=== PATIENT | female | born 1945 | race Caucasian/White ===

== ENCOUNTER 2021-02-20 05:56 | Day surgery (SDC) | payer MEDICARE ==
[2021-02-18 17:12] LABS: BASOPHILS % (AUTO) 0.7 % (0.0-5.0); LYMPHOCYTES % (AUTO) 26.2 % (21.0-51.0); MEAN CORPUSCULAR HEMOGLOBIN 27.3 pg (27.0-33.0); MEAN CORPUSCULAR HGB CONC 31.3 g/dL (32.0-36.0); MEAN CORPUSCULAR VOLUME 87.2 fL (79-99); MONOCYTES % (AUTO) 8.5 % (3.0-13.0); NEUTROPHILS % (AUTO) 63.3 % (40.0-77.0); PLATELET COUNT (AUTO) 235 K/uL (130-400); RED BLOOD CELL COUNT(AUTO) 4.47 MIL/uL (4.00-5.50); RED CELL DISTRIBUTION WIDTH 14.8 % (11.0-15.5); WHITE BLOOD COUNT (AUTO) 7.1 K/uL (4.8-10.8)
[2021-02-18 17:21] LABS: APPEARANCE,URINE Clear (CLEAR); BILIRUBIN,URINE Negative (NEGATIVE); COLOR,URINE Yellow (YELLOW); GLUCOSE, URINE (UA) Negative (NEGATIVE); KETONES,URINE Negative (NEGATIVE); LEUKOCYTE ESTERASE ,URINE Small (NEGATIVE); NITRATE,URINE Negative (NEGATIVE); OCCULT BLOOD,URINE Negative (NEGATIVE); PROTEIN,URINE Negative (NEGATIVE)
[2021-02-18 17:22] LABS: CREATININE 0.8 mg/dL (0.5-1.5); POTASSIUM 4.1 mmol/L (3.5-5.1)
[2021-02-18 17:26] LABS: INR 0.94 (0.85-1.15); PROTHROMBIN TIME 10.3 SEC (9.6-11.6)
[2021-02-18 17:27] LABS: PARTIAL THROMBOPLASTIN TIME 24.6 SEC (26.3-35.5)
[2021-02-18 17:37] LABS: RBC,URINE None Seen /HPF (0-1); WBC,URINE 0-1 /HPF (0-1)
[2021-02-18 17:38] LABS: BACTERIA,URINE Few /HPF (None Seen); SQUAMOUS EPITHELIAL CELL,UR 0-2 /HPF (0-2)
[2021-02-19 10:21] VITALS: BP 142/71
[~2021-02-20] VITALS: Ht 171.4 cm; Wt 126.2 kg
[2021-02-20] VITALS (11 sets, daily range): BP systolic 118–143; BP diastolic 42–73
[~2021-02-20 05:56] MED LIST: CALC-1106 PO; CIME200T10 PO; CYAN-35 PO; DULO30CA52 PO; DULO60CA64 PO; LOSA50TA64 PO; SODIUM CHLORIDE 0.9% 500ML 500 ML IV SCH; VIT1CAPS47 PO; VITAMIN D3 PO
[2021-02-20] MEDS ORDERED: SODIUM CHLORIDE 0.9% 1000ML 1,000 ML IV ONE (06:20)
[2021-02-20] MEDS ORDERED: HEPARIN SODIUM 1000UNIT/ML 10ML VIAL ONE (07:15)
[2021-02-20] MEDS ORDERED: SODIUM BICARB 50MEQ 50ML VIAL 50 ML ONE (07:15)
[2021-02-20] MEDS ORDERED: IOHEXOL 350 MG/ML 100ML INFUS..BTL IV ONE (07:16)
[2021-02-20] MEDS ORDERED: FENTANYL CITRATE PF 50 MCG/1 ML 2ML VIAL ONE (07:16)
[2021-02-20] MEDS ORDERED: NITROGLYCERIN 2 MG/VIAL VIAL IV ONE (07:16)
[2021-02-20] MEDS ORDERED: MIDAZOLAM HCL 1 MG/ML 2ML VIAL ONE (07:16)
[2021-02-20] MEDS ORDERED: LIDOCAINE HCL 2% 20ML ONE (07:16)
[2021-02-20] MEDS ORDERED: SODIUM CHLORIDE 0.9% 1000ML 1,000 ML IV SCH (08:30)
== END 2021-02-20 14:45 | disposition home or self-care (01) ==
LOC: DAH 05:56
PROVIDERS: ATTEND Internal Medicine Cardiovascular Disease
DX: I27.20 Pulmonary hypertension, unspecified (principal); Q21.1 Atrial septal defect; Q24.5 Malformation of coronary vessels; I10 Essential (primary) hypertension; E66.9 Obesity, unspecified; Z95.1 Presence of aortocoronary bypass graft; Z90.49 Acquired absence of other specified parts of digestive tract; Z98.84 Bariatric surgery status; Z98.890 Other specified postprocedural states; Z68.41 Body mass index [BMI] 40.0-44.9, adult; Z79.01 Long term (current) use of anticoagulants; Z79.899 Other long term (current) drug therapy
CPT/HCPCS: 36415; 71045; 80048; 81001; 85025; 85610; 85730; 93005; 93460; A4215; A4216; A4221; A4222; A4223 ×3; A4606; A4663; C1760; C1894 ×3; J1644; J2250; J3010; J3490 ×3; J7030; Q9967; 99156; 99157

== ENCOUNTER 2025-07-02 11:39 | Emergency (ER) | payer MEDICARE ==
[~2025-07-02] VITALS: Ht 170.2 cm; Wt 132.4 kg
[~2025-07-02 11:39] MED LIST changes: -SODIUM CHLORIDE 0.9% 500ML 500 ML IV SCH
--- NOTE | 2025-07-02 11:51 | ERN ---
ED Note History of Present Illness Stated Complaint: INTERMITTENT, ANXIETY, SHAKY, CHILLS Chief Complaint: Anxiety/Panic Attack Time Seen by MD: 11:43 Dictation: PATIENT IS A 79-YEAR-OLD FEMALE COMING IN TODAY WITH COMPLAINTS OF INTERMITTENT ANXIETY SHAKY AND CHILLS FOR SEVERAL YEARS. SHE STATES SHE IS ON MULTIPLE MEDICATIONS FOR DEPRESSION AND ANXIETY HOWEVER, DOES NOT OFFER ANY SPECIFIC COMPLAINTS. SHE IS AFEBRILE IN TRIAGE, NO CHEST PAIN NO BACK PAIN NO NAUSEA VOMITING NO CHANGE IN URINATION. SHE STATES HER PRIMARY CARE DOCTOR IS IN [place], DR. MARKS HOWEVER HAS NEVER TOLD HER ABOUT THIS BEFORE. HER FINAL THOUGHTS WERE I JUST DO NOT FEEL GOOD. SHE DENIES SUICIDAL OR HOMICIDAL IDEATION Allergies: Coded Allergies: ibuprofen (Unverified Allergy, Unknown, 02/19/21) morphine (Unverified Allergy, Unknown, 02/19/21) Home Meds Reported Medications Vit C/E/Zn/Coppr/Lutein/Zeaxan (Preservision Areds 2 Softgel) 1 Each Capsule, 1 EACH PO BID, CAP 02/19/21 Cyanocobalamin (Vitamin B-12) (Vitamin B-12) 1,000 Mcg Capsule, 1000 MCG PO DAILY, CAP 02/19/21 Losartan Potassium (Losartan Potassium) 50 Mg Tablet, 50 MG PO DAILY, TAB 02/19/21 Cimetidine (Cimetidine) 200 Mg Tablet, 200 MG PO BID, TAB 02/19/21 Duloxetine HCl (Duloxetine HCl) 60 Mg Capsule.dr, 60 MG PO HS, CAP 02/19/21 Duloxetine HCl (Duloxetine HCl) 30 Mg Capsule.dr, 30 MG PO DAILY, CAP 02/19/21 Calcium Carbonate/Vitamin D3 (Calcium 600 + Vit D3 800 Tab) 1 Each Tablet, 1 EACH PO BID, TAB 02/19/21 [Vitamin D3] No Conflict Check, 5000 UNITS PO BID 02/19/21 Past Medical History History: Not Applicable RN Note Reviewed/Agreed w/PFSH: Yes Review of System Dictation CONSTITUTIONAL: NEGATIVE EXCEPT FOR HPI ANXIETY/SHAKY/CHILLS HEAD/FACE: NEGATIVE EXCEPT FOR HPI EENT: NEGATIVE EXCEPT FOR HPI RESPIRATORY: NEGATIVE EXCEPT FOR HPI GASTROINTESTINAL/ABDOMINAL: NEGATIVE EXCEPT FOR HPI GENITOURINARY: NEGATIVE EXCEPT FOR HPI MUSCULOSKELETAL: NEGATIVE EXCEPT FOR HPI INTEGUMENTARY: NEGATIVE EXCEPT FOR HPI NEUROLOGICAL/PSYCH: NEGATIVE EXCEPT FOR HPI HEMATOLOGIC/LYMPHATIC: NEGATIVE EXCEPT FOR HPI ALL SYSTEMS NEGATIVE, EXCEPT NOTED ABOVE. 13 POINT REVIEW OF SYSTEMS ASSESSED AND ALL NEGATIVE EXCEPT FOR ABOVE. Initial Vital Sign VS Vital Signs Date Time Temp Pulse Resp B/P (MAP) Pulse Ox O2 Delivery O2 Flow Rate FiO2 07/02/25 11:42 97.9 56 16 161/56 98 Room Air 0 07/02/25 13:58 21 Physical Exam Dictation VITAL SIGNS REVIEWED GENERAL APPEARANCE: ALERT, ORIENTED X 3, NO ACUTE DISTRESS, WELL DEVELOPED, NOURISHED. OBESE. NO SPECIFIC COMPLAINTS OTHER THAN SHAKY CHILLS AND ANXIETY FOR YEARS HEAD AND FACE: NON-TRAUMATIC. EYES: PERRL, PINK CONJUNCTIVAS, EYELID NO TRAUMA, ANTERIOR CHAMBER WITH ARCUS SENILIS. EARS: PINNAS INTACT AND NO SIGNS OF TRAUMA OR ERYTHEMA EAR CANALS CLEAR AND NO DISCHARGE TM NO ERYTHEMA NOSE: NO DISCHARGE, NO BLEEDING. OROPHARYNX: MOUTH NORMAL, TONGUE PINK, PHARYNX CLEAR,NO ERYTHEMA, TONSILS NO EXUDATES, NO ABSCESSES NOTED, MUCOUS MEMB MELLO MOIST NECK: SUPPLE, NON-TENDER, NO THYROMEGALY, NO MASSES, NO JVD, NO BRUITS BREAST:DEFERRED CHEST:NO TENDERNESS, NO CREPITUS, NO PARADOXICAL MOVEMENT, NO RETRACTIONS LUNGS:CLEAR, WELL-VENTILATED, SYMMETRIC, NO RALES, NO WHEEZING, NO RHONCHI, NO S TRIDOR, GOOD BREATH SOUNDS BILATERALLY HEART: REGULAR RATE, REGULAR RHYTHM, NO MURMUR, NO GALLOPS VASCULAR: NO PERIPHERAL EDEMA, ABDOMEN: SOFT, POSITIVE BOWEL SOUNDS, NONDISTENDED, NO GUARDING, NONTENDER, NO REBOUND, NO MASSES NO HEPATOMEGALY, NO SPLENOMEGALY, NO MURRAY'S SIGN, NO HERNIAS. RECTAL: DEFERRED GENITAL: DEFERRED NEUROLOGICAL: NORMAL SPEECH, MOTOR FUNCTION INTACT, SENSORY FUNCTION INTACT MUSCULOSKELETAL: NECK NONTENDER, FULL RANGE OF MOTION, BACK NONTENDER, FULL RANGE OF MOTION, EXTREMITIES: NONTENDER, FULL RANGE OF MOTION SKIN: COLOR PINK, DRY, NO TURGOR, NO RASH, NO LACERATIONS, NO ABRASIONS, NO CONTUSIONS. LYMPHATIC: DEFERRED Results (Laboratory/Radiology) Laboratory/Radiology Laboratory Tests Test 07/02/25 13:27 07/02/25 13:55 07/02/25 15:33 White Blood Count 8.8 K/uL (4.8-10.8) Red Blood Count 4.73 MIL/uL (4.00-5.50) Hemoglobin 13.2 g/dL (12.0-16.0) Hematocrit 40.6 % (36-48) Mean Corpuscular Volume 85.8 fL (79-99) Mean Corpuscular Hemoglobin 27.9 pg (27.0-33.0) Mean Corpuscular Hemoglobin Concent 32.5 g/dL (32.0-36.0) Red Cell Distribution Width 15.1 % (11.0-15.5) Platelet Count 223 K/uL (130-400) Mean Platelet Volume 10.9 fL (7.5-10.5) H Immature Granulocyte % (Auto) 0.5 % (0-1) Neutrophils (%) (Auto) 77.1 % (40.0-77.0) H Lymphocytes (%) (Auto) 16.3 % (21.0-51.0) L Monocytes (%) (Auto) 5.3 % (3.0-13.0) Eosinophils (%) (Auto) 0.2 % (0.0-8.0) Basophils (%) (Auto) 0.6 % (0.0-5.0) Neutrophils # (Auto) 6.8 K/uL (1.8-7.7) Lymphocytes # (Auto) 1.4 K/uL (1.0-4.8) Monocytes # (Auto) 0.5 K/uL (0.1-1.0) Eosinophils # (Auto) 0.02 K/uL (0.00-0.70) Basophils # (Auto) 0.05 K/uL (0.00-0.20) Absolute Immature Granulocyte (auto 0.04 K/uL (0-1) Nucleated Red Blood Cells 0.0 % (0.0-0.19) Sodium Level 142 mmol/L (136-145) Potassium Level 4.0 mmol/L (3.5-5.1) Chloride Level 106 mmol/L (101-111) Carbon Dioxide Level 33 mmol/L (21-32) H Blood Urea Nitrogen 9 mg/dL (7-18) Creatinine 0.8 mg/dL (0.5-1.0) Glomerular Filtration Rate Calc 75 mL/min (>90) Random Glucose 97 mg/dL (70-105) Total Calcium 8.8 mg/dL (8.5-10.1) Magnesium Level 1.70 mg/dL (1.80-2.40) L Troponin I High Sensitivity 10 ng/L (4-50) 9 ng/L (4-50) Urine Color YELLOW (YELLOW) Urine Appearance CLEAR (CLEAR) Urine pH 7.5 (5.0-8.0) Urine Specific [place] 1.015 (1.001-1.031) Urine Protein TRACE mg/dL (NEGATIVE) H Urine Glucose (UA) NEGATIVE mg/dL (NEGATIVE) Urine Ketones NEGATIVE mg/dL (NEGATIVE) Urine Occult Blood NEGATIVE (NEGATIVE) Urine Nitrate NEGATIVE (NEGATIVE) Urine Bilirubin NEGATIVE mg/dL (NEGATIVE) Urine Urobilinogen 4.0 mg/dL (0.2-1.0) H Urine Leukocyte Esterase TRACE [place]/uL (NEGATIVE) H Urine RBC 0-1 /HPF (0-1) Urine WBC 0-1 /HPF (0-1) Urine Squamous Epithelial Cells Rare /HPF (0-2) Urine Bacteria None Seen /HPF (None Seen) PROCEDURE: CXR1VW - CHEST 1VW EXAM: CR Chest, 1 View. CLINICAL HISTORY: SOB/COUGH COMPARISON: None provided. FINDINGS: LUNGS: The lungs show no infiltrate or other acute finding. PLEURAL SPACES: No evidence of pleural effusion or pneumothorax. MEDIASTINUM: The cardiomediastinal silhouette is within normal limits. BONES: No acute osseous abnormality. IMPRESSION: No acute cardiopulmonary pathology is evident. /[place] Labs Reviewed?: Yes EKG Comment: EKG SINUS BRADYCARDIA/HEART RATE 57/AXIS NORMAL/ATRIAL ENLARGEMENT 1519/REPEAT EKG IS SINUS RHYTHM/HEART RATE /AXIS NORMAL/QT [id number] MILLISECOND 8 HIGH SENSITIVITY TROPONIN IS NINE HEART SCORE IS TWO ED Course ED Course Orders Procedure Category Date Status Time Cbc With Differential LAB 07/02/25 Complete 11:47 Chest 1vw RAD 07/02/25 Resulted 11:47 12 Lead Ekg Tracing- EKG 07/02/25 Complete Technical 11:47 Magnesium LAB 07/02/25 Complete 11:47 Troponin I High LAB 07/02/25 Complete Sensitivity 11:47 Urinalysis Profile LAB 07/02/25 Complete 11:47 Basic Metabolic Panel LAB 07/02/25 Complete 11:47 Magnesium 2gm Premix PHA 07/02/25 In Process 50ml (Magnesium 2gm 14:00 0.9%Nacl 1000ml (Ns PHA 07/02/25 Complete 1000ml) 14:30 12 Lead Ekg Tracing- EKG 07/02/25 Logged Technical 15:17 12 Lead Ekg Tracing- EKG 07/02/25 Logged Technical 15:25 Troponin I High LAB 07/02/25 Complete Sensitivity 15:25 Acetaminophen 500mg PHA 07/02/25 Complete Tab (Tylenol 500mg T 15:30 Current Medications Medications (Trade) Dose Ordered Sig/Nusrat Route PRN Reason Start Time Stop Time Status Last Admin Dose Admin Acetaminophen (TYLenol 500MG TAB) 1,000 mg ONCE ONCE PO 07/02/25 15:30 07/02/25 15:31 DC 07/02/25 15:54 Magnesium Sulfate 50 ml @ 0 mls/hr PROTOCOL IV 07/02/25 14:00 08/01/25 13:59 07/02/25 14:31 Sodium Chloride 1,000 ml @ 0 mls/hr ONCE ONCE IV 07/02/25 14:30 07/02/25 14:31 DC 07/02/25 14:30 Vital Signs Date Time Temp Pulse Resp B/P (MAP) Pulse Ox O2 Delivery O2 Flow Rate FiO2 07/02/25 13:58 97.9 56 16 161/56 98 Room Air* 0 21 07/02/25 11:42 97.9 56 16 161/56 98 Room Air 0 1500/PATIENT REMAINS HEMODYNAMICALLY STABLE WAS GIVEN1 L FLUIDS FOR REHYDRATION AND MAGNESIUM. REVIEWED EKG LABS AND URINALYSIS. SHE WAS REFERRED TO HER PRIMARY CARE DOCTOR FOR MANAGEMENT 1525/PATIENT STATES WHEN MAGNESIUM WAS COMPLAINING THAT SHE FELT AND SHE COULD TASTE THE MAGNESIUM IN HER THROAT. DENIES CHEST PAIN BACK PAIN NO SOB. WE WILL FOLLOW TO REPEAT EKG AND TROPONIN. 1530/PATIENT STATES THAT IS SENSATION OF HER TASTE IN HER THROAT LASTED FOR ABOUT A MINUTE IN HIS NOW COMPLETELY RESOLVED. 1555/PATIENT STATES SYMPTOMS AFTER THE MAGNESIUM OR COMPLETELY RESOLVED. SHE IS AWARE THAT REPEAT TROPONIN EKG IS NORMAL AND WE WILL BE DISCHARGED HOME. HEART Score Response (Comments) Value EKG: Normal 0 Age: > 65yrs (+2) 2 Risk Factors: 1-2 risk factors (+1) 1 Initial Troponin: Normal limit (0) 0 Total 3 Medical Decision Making MDM MDM: DIFFERENTIAL DIAGNOSIS: ACS/AMI/ELECTROLYTE IMBALANCE/DEHYDRATION/URINARY TRACT INFECTION/ANXIETY/DEPRESSION RATIONALE: TESTS CONSIDERED AND ORDERED SECONDARY TO SHARED DECISION MAKING INCLUDE: EKG/LABS PREVIOUS OUTSIDE RECORDS REVIEWED: OLD ER VISITS. RISK OF COMPLICATION AND/OR MORBIDITY OR MORTALITY OF PATIENT MANAGEMENT: NONE MEDICATIONS-PER MEDICATION RECONCILIATION NEED FOR HOSPITALIZATION: PATIENT DOES NOT MEET CRITERIA FOR HOSPITALIZATION. NONE NEED FOR EMERGENCY MAJOR/MINOR SURGERY: NO THERE ARE NO SOCIAL CONCERNS WITH THIS PATIENT. PRESCRIPTION DRUG MANAGEMENT PRESCRIPTIONS WILL INCLUDE SYMPTOMATIC CARE PATIENT'S PRIOR EXTERNAL MEDICAL RECORDS FROM OTHER ER VISITS WERE REVIEWED BY ME INDICATED. PRIOR TESTING AND RESULTS FROM PREVIOUS VISITS WERE REVIEWED. PRIOR TESTS WERE TAKEN INTO ACCOUNT WITH MEDICAL DECISION MAKING AND RESOURCE UTILIZATION, INDEPENDENT HISTORIAN/HISTORIANS WERE USED TO OBTAIN COMPLETE MEDICAL HISTORY. I INDEPENDENTLY INTERPRETED THE TEST THAT WERE PERFORMED, RESULTS WERE REVIEWED BY ME AND CONSIDERED FINDINGS ON RADIOLOGY IF ORDERED. MEDICAL MANAGEMENT AND EXAMINATION INTERPRETATION DISCUSSIONS WERE HAD BY ME WITH OTHER QUALIFIED HEALTHCARE PROFESSIONALS INDICATED FOR THE PATIENT'S CARE. DX & DISP Disposition: Discharge Departure Impression: Primary Impression: Hypomagnesemia Additional Impressions: Dehydration, Fatigue, Medication side effects Condition: Stable Additional Instructions: FOLLOW-UP WITH PRIMARY CARE PROVIDER IN 1 TO 2 DAYS. TAKE MEDICATIONS DIRECTED HERE IN THE EMERGENCY ROOM. OKAY TO CONTINUE HOME MEDICATIONS UNLESS OTHERWISE DISCUSSED DURING YOUR VISIT IN THE EMERGENCY ROOM TODAY. RETURN TO YOUR NEAREST EMERGENCY ROOM IF SYMPTOMS WORSEN OR IF THERE IS NO IMPROVEMENT. CALL 911 IF YOU NEED IMMEDIATE ASSISTANCE. TAKE TYLENOL OR MOTRIN O [id number] NEEDED AND IF NO CONTRAINDICATIONS ARE PRESENT. INCREASE ORAL HYDRATION. A WOUND CULTURE OR URINE CULTURE WAS ORDERED HERE IN THE EMERGENCY ROOM DEPARTMENT PLEASE FOLLOW-UP WITH PRIMARY CARE PROVIDER AND ADVISE THEM TO GET REPEAT PORTS FROM OUR FACILITY. IF YOU HAD ANY GRZEGORZ WRAP/SPLINTS THAT WERE APPLIED HERE, PLEASE DO NOT REMOVE THEM UNTIL YOU SEE YOUR PRIMARY CARE OR SPECIALTY. FOLLOW UP WITH YOUR PRIMARY CARE DOCTOR IN THE NEXT 1-2 DAYS MANAGEMENT. Referrals: LORAINE MARKS MD (PCP) Time of Disposition: 15:04 I have reviewed the case, and I agree with, Diagnosis and Plan RAYO AGUILAR NP Jul 02, 2025 11:51
--- NOTE | 2025-07-02 12:56 | HMCIMG ---
EXAM: CR Chest, 1 View. CLINICAL HISTORY: SOB/COUGH COMPARISON: None provided. FINDINGS: LUNGS: The lungs show no infiltrate or other acute finding. PLEURAL SPACES: No evidence of pleural effusion or pneumothorax. MEDIASTINUM: The cardiomediastinal silhouette is within normal limits. BONES: No acute osseous abnormality. IMPRESSION: No acute cardiopulmonary pathology is evident. /[place]
[2025-07-02 13:44] LABS: IMMATURE GRANULOCYTE ABSOLUTE 0.04 K/uL (0-1); NUCLEATED RED BLOOD CELLS 0.0 % (0.0-0.19); PLATELET COUNT (AUTO) 223 K/uL (130-400); RED BLOOD CELL COUNT(AUTO) 4.73 MIL/uL (4.00-5.50); RED CELL DISTRIBUTION WIDTH 15.1 % (11.0-15.5); WHITE BLOOD COUNT (AUTO) 8.8 K/uL (4.8-10.8)
[2025-07-02 13:50] LABS: CREATININE 0.8 mg/dL (0.5-1.0); GLOMERULAR FILTR. RATE CALC 75.0 mL/min (>90); GLUCOSE,RANDOM 97.0 mg/dL (70-105); SODIUM SERUM 142.0 mmol/L (136-145); UREA NITROGEN, BLOOD 9.0 mg/dL (7-18)
--- NOTE | 2025-07-02 13:50 | EKG ---
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
[2025-07-02 13:58] VITALS: BP 161/56; PULSE 56; RESP 16; TEMP 97.8; O2SAT 98
[2025-07-02 14:06] LABS: APPEARANCE,URINE CLEAR (CLEAR); GLUCOSE, URINE (UA) NEGATIVE (NEGATIVE); LEUKOCYTE ESTERASE ,URINE TRACE Leu/uL (NEGATIVE); NITRATE,URINE NEGATIVE (NEGATIVE); OCCULT BLOOD,URINE NEGATIVE (NEGATIVE)
[2025-07-02 14:08] LABS: ADD UA MICROSCOPIC YES
[2025-07-02 14:15] LABS: SQUAMOUS EPITHELIAL CELL,UR Rare /HPF (0-2)
[2025-07-02] MEDS: 0.9%NACL 1000ML 1,000 ML IV ONE (14:30)
[2025-07-02] MEDS: MAGNESIUM 2GM PREMIX 50ML 50 ML IV SCH (14:31)
--- NOTE | 2025-07-02 18:26 | EKG ---
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1945 Requested By: RAYO AGUILAR Order Number: [id number] Reading MD: Danie Swain Measurements Intervals [place] Rate: 83 P: 68 [place]: 140 QRS: 30 QRSD: 104 T: 51 QT: 472 QTc: 613 Interpretive Statements Sinus tachycardia Ventricular trigeminy Prolonged QT interval Nonspecific STT abnormality Compared to ECG 07/02/2025 11:51:14 Ventricular premature complex(es) now present Prolonged QT interval now present Sinus rhythm no longer present Atrial premature complex(es) no longer present Electronically Signed On 07-03-2025 07:31:37 CDT by Danie Swain Please click the below link to view image of tracing.
== END 2025-07-02 16:23 | disposition home or self-care (01) ==
LOC: EDH 11:39
DX: E83.42 Hypomagnesemia (principal); E86.0 Dehydration; R53.83 Other fatigue; T50.905A Adverse effect of unspecified drugs, medicaments and biological substances, initial encounter; Z79.899 Other long term (current) drug therapy; Z88.5 Allergy status to narcotic agent; Z88.6 Allergy status to analgesic agent; Z20.822 Contact with and (suspected) exposure to COVID-19
CPT/HCPCS: 99285; 96374; 71045; 83735; 84484 ×2; 80048; 85025; 81001; 36415; 93005 ×2; J3475; J7030